=== PATIENT | male | born 1955 | race Caucasian/White ===

== ENCOUNTER 2020-04-28 18:09 | Emergency (ER) | payer MEDICARE ==
[2020-04-28] MEDS ORDERED: LIDOCAINE 4% CREAM 5 GM TUBE TP ONE (18:26)
--- NOTE | 2020-04-28 18:30 | ER Document Report ---
HPI - HPI Patient complains to provider of: head injury Time Seen by Provider: 04/28/20 18:26 Onset: Other - 3 pm Onset/Duration: Persistent Context: Patient states that he was standing up on the ledge in the shower attempting to fix a curtain, patient reports slipping from a height falling and hitting his head. There was no loss of consciousness, no vomiting. Patient with laceration to occipital scalp. Patient went to the urgent care was advised to come here for CT imaging. Associated Symptoms: Headache - Now resolved. denies: Nausea, Vomiting Exacerbated by: Denies Relieved by: Denies Similar symptoms previously: No Recently seen / treated by doctor: No - ROS ROS below otherwise negative: Yes Systems Reviewed and Negative: Yes All other systems reviewed and negative - CONSTITUTIONAL Constitutional: DENIES: Fever - GASTROINTESTINAL Gastrointestinal: DENIES: Nausea, Patient vomiting - MUSCULOSKELETAL Musculoskeletal: DENIES: Extremity pain, Back Pain, Neck Pain - DERM Skin Color: Normal Skin Problems: Laceration - 3.5 cm lac to occipital scalp Past Medical History - General Information source: Patient - Social History Smoking Status: Never Smoker Lives with: Family Family History: Reviewed & Not Pertinent - Medical History Medical History: Negative Past Surgical History: Reports: Hx Orthopedic Surgery Vertical Provider Document - CONSTITUTIONAL Agree With Documented VS: Yes Exam Limitations: No Limitations General Appearance: WD/WN, No Apparent Distress - HEENT HEENT: Normal ENT Exam, Normocephalic, PERRLA. negative: Pharyngeal Exudate, Pharyngeal Tenderness, Tympanic Membrane Red, Tympanic Membrane Bulging - NECK Neck: Normal Inspection, Supple. negative: Lymphadenopathy-Left, Lymphadenopathy-Right Notes: No cervical midline tenderness step-off or deformity - RESPIRATORY Respiratory: Breath Sounds Normal, No Respiratory Distress - CARDIOVASCULAR Cardiovascular: Regular Rate, Regular Rhythm - MUSCULOSKELETAL/EXTREMETIES Musculoskeletal/Extremeties: MAEW - NEURO Level of Consciousness: Awake, Alert, Appropriate Motor/Sensory: No Motor Deficit - DERM Integumentary: Warm, Dry, Laceration - 3.5 cm laceration to occipital scalp, patient with hematoma to occipital scalp area Course - Re-evaluation Re-evalutation: 04/28/20 19:38 Patient without any acute findings on CT scan. The patient presents with injury without signs of [employer] bleed, stroke or other serious etiology. The patient is neurologically intact. Given the extremely low risk of these diagnoses further testing and evaluation for these possibilities does not appear to be indicated at this time. The patient has been instructed to return if the symptoms worsen or change in any way. - Vital Signs Vital signs: Temp Pulse Resp BP Pulse Ox 97.6 F 67 16 139/87 H 100 04/28/20 18:13 04/28/20 18:13 04/28/20 18:13 04/28/20 18:13 04/28/20 18:13 - Diagnostic Test Radiology reviewed: Reports reviewed Procedures - Laceration/Wound Repair Head Wound length (cm): 3.5 Wound's Depth, Shape: Linear Laceration pre-procedure: Shur-Clens applied Anesthetic type: Other - anecream Wound explored: Clean Wound Repaired With: Greg Number of Sutures: 6 Post-procedure NV exam normal: Yes Complications: No Adult Head Front/Back picture: 1 - lac Discharge - Discharge Clinical Impression: Head injury Qualifiers: Encounter type: initial encounter Qualified Code(s): S09.90XA - Unspecified injury of head, initial encounter Scalp hematoma Qualifiers: Encounter type: initial encounter Qualified Code(s): S00.03XA - Contusion of scalp, initial encounter Scalp laceration Qualifiers: Encounter type: initial encounter Qualified Code(s): S01.01XA - Laceration without foreign body of scalp, initial encounter Condition: Stable Disposition: HOME, SELF-CARE Instructions: Acetaminophen, Scalp Hematoma ([facility]), Scalp Laceration ([facility]), Care of Stapled Wounds ([facility]) Additional Instructions: Return immediately for any new or worsening symptoms Followup with your primary care provider, call tomorrow to make a followup appointment Staple removal in 1 week.
--- NOTE | 2020-04-28 19:08 | RADIOLOGY REPORT (SQ) ---
EXAM DESCRIPTION: CT HEAD WITHOUT IMAGES COMPLETED DATE/TIME: 04/28/2020 6:40 pm REASON FOR STUDY: fall, head injury, lac COMPARISON: None. TECHNIQUE: Axial images acquired through the brain without intravenous contrast. Images reviewed wi th bone, brain and subdural windows. Additional sagittal and coronal reconstructions were generated. Images stored on PACS. All CT scanners at this facility use dose modulation, iterative reconstruction, and/or weight based d osing when appropriate to reduce radiation dose to as low as reasonably achievable (ALARA). [facility]: Dose Right [facility]: CareDose [facility]: Dose Right [facility]: Teradose 4D [facility]: Smart One Public RADIATION DOSE: CT Rad equipment meets quality standard of care and radiation dose reduction techniq ues were employed. CTDIvol: 53.2 mGy. DLP: 1044 mGy-cm. mGy. LIMITATIONS: None. FINDINGS: VENTRICLES: Normal size and contour. CEREBRUM: No masses. No hemorrhage. No midline shift. No evidence for acute infarction. Normal gra y/white matter differentiation. No areas of low density in the white matter. CEREBELLUM: No masses. No hemorrhage. No alteration of density. No evidence for acute infarction. EXTRAAXIAL SPACES: No fluid collections. No masses. ORBITS AND GLOBE: No intra- or extraconal masses. Normal contour of globe without masses. CALVARIUM: No fracture. PARANASAL SINUSES: No fluid or mucosal thickening. SOFT TISSUES: No mass or hematoma. OTHER: No other significant finding. IMPRESSION: NORMAL BRAIN CT WITHOUT CONTRAST. EVIDENCE OF ACUTE STROKE: NO. COMMENT: Quality ID # [id number]: Final reports with documentation of one or more dose reduction techniques (e.g., Automated exposure control, adjustment of the mA and/or kV according to patient size, use of iterative reconstruction technique) TECHNICAL DOCUMENTATION: JOB ID: [id number] 2010 [employer]- All Rights Reserved Reading location - IP/workstation name: [email or web address]
[2020-04-28 20:29] VITALS: BP 133/86
== END 2020-04-28 20:35 | disposition home or self-care (01) ==
LOC: ER 18:09
DX: S01.01XA Laceration without foreign body of scalp, initial encounter (principal); W18.39XA Other fall on same level, initial encounter; Y92.002 Bathroom of unspecified non-institutional (private) residence as the place of occurrence of the external cause
CPT/HCPCS: 99283; 70450; 12002; J3490